=== PATIENT | female | born 1975 | race Caucasian/White ===

== ENCOUNTER 2017-11-22 18:37 | Emergency (ER) | payer MEDICAID, SELFPAY ==
[2017-11-22 18:41] VITALS: BP 138/93; PULSE 110; RESP 20; TEMP 36.9; O2SAT 98; BMI 19.7
--- NOTE | 2017-11-22 19:21 | HMH.EDUROGF ---
ED Disposition Condition on Discharge: Fair - Critical Care Critical Care Time: No <Heidy Batres - Last Filed: 11/22/17 20:05> <Haile Degroot - Last Filed: 11/22/17 21:33> Clinical Impression: Pyelonephritis, IDDM (insulin dependent diabetes mellitus) Disposition: Home, Self-Care Instructions: DI for Urinary Tract Infection (UTI) Additional Instructions: fluids and call pcp for follow up Prescriptions: cephALEXin [Keflex 500mg Cap] 500 mg PO Q8H #30 cap Referrals: Haile Degroot MD [Primary Care Provider] - Attestation: On 11/22/17, the high probability of a clinically significant, sudden or life threatening deterioration of the following system(s) required my full and direct attention, intervention and personal management. The time I documented below is in addition to time spent performing reported procedures but includes the following listed in this critical care notation. Medical Decision Making - Lab Data Result diagrams: 11/22/17 19:00 11/22/17 19:00 - [place] Inquiry Pt receiving controlled substance: No Chen[place] was queried for this patient: No <YefrixiangElazeinab - Last Filed: 11/22/17 20:05> - Lab Data Lab results reviewed: Yes: I reviewed the patient's lab results. Result diagrams: 11/22/17 19:00 11/22/17 19:00 - CT Data CT Scan: Abdomen, Pelvis Time Received: 21:[address] Reviewed: Yes: I have viewed the radiologist's interpretation Preliminary Findings: Normal/NAD <Haile Degroot - Last Filed: 11/22/17 21:33> Vital Signs: 11/22/17 18:41 11/22/17 20:37 Temperature 98.4 F Temperature Source Oral Pulse Rate [Left Brachial] 110 H 93 H Respiratory Rate 20 18 Blood Pressure [Left Arm] 138/93 128/78 Blood Pressure Mean [Left Arm] 108 94 Blood Pressure Source [Left Arm] Automatic Cuff Automatic Cuff Blood Pressure Position [Left Arm] Supine Sitting 02 Sat by Pulse Oximetry 98 98 Oxygen Delivery Method Room Air Room Air - Lab Data Lab Results 11/22/17 19:00: Urine Color Yellow, Urine Appearance Sl cloudy, Urine pH 6.0, Ur Specific [place] 1.015, Urine Protein 2+, Urine Glucose (UA) 3+, Urine Ketones Negative, Urine Blood 3+, Urine Nitrate Negative, Urine Bilirubin Negative, Urine Urobilinogen 0.2, Ur Leukocyte Esterase 1+ A, Urine RBC 20-50, Urine WBC Tntc 11/22/17 19:00: WBC 11.4 H, RBC 4.79, Hgb 14.5, Hct 44.6, MCV 93.0, MCH 30.3, MCHC 32.6, RDW 12.6, Plt Count 209, MPV 10.6 H, Neut % (Auto) 67.3, Lymph % (Auto) 24.3, [place] % (Auto) 5.3, Eos % (Auto) 2.3, Baso % (Auto) 0.7, Neut # (Auto) 7.7, Lymph # (Auto) 2.8, [place] # (Auto) 0.6, Eos # (Auto) 0.3, Baso # (Auto) 0.1 11/22/17 19:00: Sodium 137, Potassium 4.1, Chloride 99, Carbon Dioxide 31, Anion Gap 11.1, BUN 12, Creatinine 0.93, Estimated Creat Clear 69, Estimated GFR 66, Est GFR ( Amer) 80, Glucose 389 H, Calcium 9.1, Total Bilirubin 0.2, AST 14 L, ALT 27, Alkaline Phosphatase 80, Total Protein 7.6, Albumin 3.8, Globulin 3.8 H, Albumin/Globulin Ratio 1.0 L 11/22/17 19:00: Lactic Acid 1.5 Orders (Tests/Meds): ED MEDICATIONS Generic Name Dose Route Start Last Admin Trade Name Freq PRN Reason Stop Dose Admin Acetaminophen/Codeine Phosphate 1 nate 11/22/17 21:30 Acetaminophen W/Codeine #3 Take Home Pack (6) PO 11/22/17 21:31 ONCE ONE Butorphanol Tartrate 1 mg 11/22/17 21:29 Stadol 2mg/Ml Vial IV 11/22/17 21:30 ONCE ONE Discontinued Medications Generic Name Dose Route Start Last Admin Trade Name Freq PRN Reason Stop Dose Admin Sodium Chloride 1,000 mls @ 999 mls/hr 11/22/17 19:00 11/22/17 19:20 Sod Chloride 0.9% 1000ml Bag IV 11/22/17 20:00 999 mls/hr .Q1H1M AFIA Administration Ceftriaxone Sodium 1 gm/ 50 mls @ 100 mls/hr 11/22/17 18:59 11/22/17 19:20 Sodium Chloride IV 11/22/17 19:28 100 mls/hr ONCE ONE Administration Insulin Human Regular 8 unit 11/22/17 19:50 11/22/17 20:28 Humulin R Insulin 100 Units/Ml 10ml Vial SQ 11/22/17 19:51 8 un
[2017-11-22 19:24] LABS: Microscopic, Urine URINE MICROSCOPIC (MICROSCOPIC)
--- NOTE | 2017-11-22 19:25 | ED_ITS ---
ED Disposition Condition on Discharge: Fair - Critical Care Critical Care Time: No <Heidy Batres - Last Filed: 11/22/17 20:05> <Haile Degroot - Last Filed: 11/22/17 21:33> Clinical Impression: Pyelonephritis, IDDM (insulin dependent diabetes mellitus) Disposition: Home, Self-Care Instructions: DI for Urinary Tract Infection (UTI) Additional Instructions: fluids and call pcp for follow up Prescriptions: cephALEXin [Keflex 500mg Cap] 500 mg PO Q8H #30 cap Referrals: Haile Degroot MD [Primary Care Provider] - Attestation: On 11/22/17, the high probability of a clinically significant, sudden or life threatening deterioration of the following system(s) required my full and direct attention, intervention and personal management. The time I documented below is in addition to time spent performing reported procedures but includes the following listed in this critical care notation. Medical Decision Making - Lab Data Result diagrams: 11/22/17 19:00 11/22/17 19:00 - hCencho Inquiry Pt receiving controlled substance: No Chenh[place] was queried for this patient: No <YefrixiangElazeinab - Last Filed: 11/22/17 20:05> - Lab Data Lab results reviewed: Yes: I reviewed the patient's lab results. Result diagrams: 11/22/17 19:00 11/22/17 19:00 - CT Data CT Scan: Abdomen, Pelvis Time Received: 21:[address] Reviewed: Yes: I have viewed the radiologist's interpretation Preliminary Findings: Normal/NAD <Haile Degroot - Last Filed: 11/22/17 21:33> Vital Signs: 11/22/17 18:41 11/22/17 20:37 Temperature 98.4 F Temperature Source Oral Pulse Rate [Left Brachial] 110 H 93 H Respiratory Rate 20 18 Blood Pressure [Left Arm] 138/93 128/78 Blood Pressure Mean [Left Arm] 108 94 Blood Pressure Source [Left Arm] Automatic Cuff Automatic Cuff Blood Pressure Position [Left Arm] Supine Sitting 02 Sat by Pulse Oximetry 98 98 Oxygen Delivery Method Room Air Room Air - Lab Data Lab Results 11/22/17 19:00: Urine Color Yellow, Urine Appearance Sl cloudy, Urine pH 6.0, Ur Specific [place] 1.015, Urine Protein 2+, Urine Glucose (UA) 3+, Urine Ketones Negative, Urine Blood 3+, Urine Nitrate Negative, Urine Bilirubin Negative, Urine Urobilinogen 0.2, Ur Leukocyte Esterase 1+ A, Urine RBC 20-50, Urine WBC Tntc 11/22/17 19:00: WBC 11.4 H, RBC 4.79, Hgb 14.5, Hct 44.6, MCV 93.0, MCH 30.3, MCHC 32.6, RDW 12.6, Plt Count 209, MPV 10.6 H, Neut % (Auto) 67.3, Lymph % ( Auto) 24.3, [place] % (Auto) 5.3, Eos % (Auto) 2.3, Baso % (Auto) 0.7, Neut # (Auto ) 7.7, Lymph # (Auto) 2.8, [place] # (Auto) 0.6, Eos # (Auto) 0.3, Baso # (Auto) 0.1 11/22/17 19:00: Sodium 137, Potassium 4.1, Chloride 99, Carbon Dioxide 31, Anion Gap 11.1, BUN 12, Creatinine 0.93, Estimated Creat Clear 69, Estimated GFR 66, Est GFR ( Amer) 80, Glucose 389 H, Calcium 9.1, Total Bilirubin 0.2, AST 14 L, ALT 27, Alkaline Phosphatase 80, Total Protein 7.6, Albumin 3.8, Globulin 3.8 H, Albumin/Globulin Ratio 1.0 L 11/22/17 19:00: Lactic Acid 1.5 Orders (Tests/Meds): ED MEDICATIONS Generic Name Dose Route Start Last Admin Trade Name Freq PRN Reason Stop Dose Admin Acetaminophen/Codeine Phosphate 1 nate 11/22/17 21:30 Acetaminophen W/Codeine #3 Take Home Pack (6) PO 11/22/17 21:31 ONCE ONE Butorphanol Tartrate 1 mg 11/22/17 21:29 Stadol 2mg/Ml Vial IV 11/22/17 21:30 ONCE ONE
[2017-11-22 19:26] LABS: Appearance,Urine SL CLOUDY (Clear); Bilirubin,Urine Negative (Negative); Blood, Urine 3+ (Negative); Color,Urine YELLOW (Yellow); Glucose,Urine (UA) 3+ (Negative); Ketones,Urine Negative (Negative); Leukocyte Esterase,Urine 1+ (Negative); Nitrate,Urine Negative (Negative); Protein,Urine 2+ (Negative); Specific Gravity, Urine 1.015 (1.005-1.030); Urobilinogen,Urine 0.2 EU/dl (0.2)
[2017-11-22 19:28] LABS: RBC,Urine 20-50 #/hpf (0-3); WBC,Urine TNTC #/hpf (0-3)
[2017-11-22 19:32] LABS: Basophils # 0.1 K/mm3 (0-0.2); Basophils % 0.7 % (0.1-2.0); Eosinophils # 0.3 K/mm3 (0.0-0.4); Eosinophils % 2.3 % (0.1-12.0); Hematocrit 44.6 % (37.0-47.0); Hemoglobin 14.5 g/dL (12.2-16.2); Lymphocytes # 2.8 K/mm3 (0.7-4.5); Lymphocytes % 24.3 K/mm3 (10-50); Mean Corpuscular HGB Conc 32.6 g/dL (31.8-35.4); Mean Corpuscular Hemoglobin 30.3 pg (27.0-31.2); Mean Platelet Volume 10.6 fl (7.4-10.4); Monocytes # 0.6 K/mm3 (0.1-1.0); Monocytes % 5.3 % (1.7-9.3); Neutrophils # 7.7 K/mm3 (1.8-7.8); Neutrophils % 67.3 % (37.0-80.0); Platelet Count 209 K/mm3 (142-424); Red Blood Count 4.79 M/mm3 (4.20-5.40); Red Cell Distribution Width 12.6 % (11.5-17.5); White Blood Count 11.4 K/mm3 (4.8-10.8)
[2017-11-22 19:44] LABS: Alanine Aminotransferase 27 U/L (12-78); Albumin Level 3.8 gm/dL (3.4-5.0); Alkaline Phosphatase 80 U/L (46-116); Anion Gap 11.1 mEq/L (5-15); Aspartate Amino Transferase 14 U/L (15-37); Bilirubin,Total 0.2 mg/dL (0.2-1.0); Blood Urea Nitrogen 12 mg/dL (7-18); Calcium 9.1 mg/dL (8.5-10.1); Carbon Dioxide 31 mmol/L (21.0-32.0); Chloride 99 mmol/L (98-107); Creatinine Clearance Estimated 69 mL/min (0-300); Creatinine,Serum 0.93 mg/dL (0.55-1.02); Estimated Glomerular Filt Rate 66 ml/min (>60); GFR (African American) 80 ML/MIN (>60); Globulin 3.8 gm/dl (1.3-3.2); Glucose 389 mg/dL (74-106); Potassium 4.1 mmoL/L (3.5-5.1); Sodium 137 mmol/L (136-145); Total Protein,Serum 7.6 gm/dL (6.4-8.2)
[2017-11-22 19:47] LABS: Lactic Acid 1.5 mmol/L (0.4-2.0)
--- NOTE | 2017-11-22 19:50 | PC.NURSE ---
Pt. to CT
--- NOTE | 2017-11-22 20:02 | CT_ITS ---
CT abdomen pelvis w con CLINICAL INDICATION: Hematuria, pelvic pain with constipation ORDERING PHYSICIAN: Heidy Batres MD PATIENT AGE: 42 years COMPARISON: 08/26/2017 TECHNIQUE: Axial images obtained with sagittal and coronal reformats. PROCEDURE: Oral Contrast: None IV Contrast: 75 mL [id number] . FINDINGS: Minimal atelectatic or fibrotic change in the left lower lobe. The liver, spleen, adrenal glands, pancreas, and gallbladder have an unremarkable appearance. No renal calculi or hydronephrosis. No ureteral calculi. No evidence of appendicitis, diverticulitis, intestinal obstruction, or free air. There is a moderate amount retained colonic feces. There is a small amount fluid in the pelvis nonspecific and may be physiologic. No focal inflammatory change or pelvic mass evident. No acute bony anomalies. IMPRESSION: 1. No acute intra-abdominal or pelvic findings. 2. Constipation
[2017-11-22 20:37] VITALS: BP 128/78; PULSE 93; RESP 18; O2SAT 98
== END 2017-11-22 21:55 | disposition home or self-care (01) ==
PROVIDERS: Emergency Provider Emergency Medicine; Family Provider Physician Assistant; PCP Emergency Medicine
DX: N12 Tubulo-interstitial nephritis, not specified as acute or chronic (principal); E11.9 Type 2 diabetes mellitus without complications; Z79.4 Long term (current) use of insulin; Z79.899 Other long term (current) drug therapy; F17.210 Nicotine dependence, cigarettes, uncomplicated
CPT/HCPCS: 74177; 80053; 81001; 82565; 83605; 85025; 87040; 87086; 87088; 87186; 96365; 96372; 96375; 99284; Q9967

== ENCOUNTER 2017-12-08 16:31 | Emergency (ER) | payer MEDICAID, SELFPAY ==
--- NOTE | 2017-12-08 | CT_ITS ---
CT abdomen pelvis wo con CLINICAL INDICATION: Left flank pain, left lower quadrant pain ITS.REASON: LEFT FLANK PAIN ORDERING PHYSICIAN: Sam Tony MD PATIENT AGE: 42 years COMPARISON: 11/22/2017 TECHNIQUE: Axial images obtained with sagittal and coronal reformats. PROCEDURE: Oral Contrast: None IV Contrast: None . FINDINGS: Lung bases are clear. There is along left lateral hepatic segment as a normal variant. No radio opaque gallstones. Study is limited technically without IV and oral contrast and due to patient's pars of the peritoneal fat. No obvious pancreatic mass. Adrenal glands and kidneys have an unremarkable unenhanced CT appearance. There is moderate amount retained colonic feces. There is a small amount fluid in the pelvis. No signs of appendicitis or diverticulitis. No obvious pelvic mass or focal inflammatory change. No acute bony anomalies. IMPRESSION: 1. No acute abdominal or pelvic findings. There is a small amount fluid in the pelvis which is nonspecific 2. There are multiple unopacified bowel loops present within the abdomen/pelvis which could obscure or mimic pathology. If symptoms persists, consider repeating exam with IV and oral contrast administration
--- NOTE | 2017-12-08 16:54 | XR_ITS ---
XR chest portable HISTORY: Fever with pain ITS.REASON: ORDERING PHYSICIAN: Sam Tony MD PATIENT AGE: 42 years COMPARISON: 05/20/2016 FINDINGS: The cardiomediastinal silhouette and pulmonary vascularity are within normal limits. There is an oval opacity in the right midlung laterally unchanged measuring 2.5 cm. Lungs are otherwise clear. No acute bony anomalies. IMPRESSION: No acute finding
--- NOTE | 2017-12-08 17:12 | HMH.EDGENADL ---
ED Disposition Clinical Impression: Pyelonephritis Disposition: Home, Self-Care Condition on Discharge: Good Instructions: Urinary Tract Infection Prescriptions: Ibuprofen [Motrin 600mg Tablet] 600 mg PO Q6HP PRN #14 tab PRN Reason: Moderate Pain Ciprofloxacin HCl [Cipro 500mg Tab] 500 mg PO BID #20 tab Promethazine HCl [Phenergan 25mg tab] 25 mg PO BIDP PRN #10 tab PRN Reason: Nausea And Vomiting Referrals: Haile Degroot MD [Primary Care Provider] - - Critical Care Critical Care Time: No Attestation: On 12/08/17, the high probability of a clinically significant, sudden or life threatening deterioration of the following system(s) required my full and direct attention, intervention and personal management. The time I documented below is in addition to time spent performing reported procedures but includes the following listed in this critical care notation. Medical Decision Making - Medical Records MR Comment: 193 CT read by radiologist as no acute disease. Checked the previous culture was susceptible to basically everything including Cipro will start the patient on Cipro here. Vital Signs: 12/08/17 17:16 Temperature 100.1 F H Temperature Source Oral Pulse Rate [Right Radial] 119 H Respiratory Rate 20 Blood Pressure [Right Arm] 107/75 Blood Pressure Mean [Right Arm] 85 Blood Pressure Source [Right Arm] Automatic Cuff Blood Pressure Position [Right Arm] Sitting 02 Sat by Pulse Oximetry 100 Oxygen Delivery Method Room Air - Lab Data Lab Results 12/08/17 16:54: VBG pH 7.31, VBG pCO2 58.1 H, VBG pO2 29.3, VBG HCO3 28.7, VBG Total CO2 30.4 H, VBG O2 Saturation 56.4, VBG Base Excess 2.4 H 12/08/17 16:54: Urine HCG, Qual Negative, Influenza Type A Ag Negative, Influenza Type B Ag Negative 12/08/17 17:22: Urine Color Yellow, Urine Appearance Clear, Urine pH 6.0, Ur Specific [place] <= 1.005, Urine Protein Negative, Urine Glucose (UA) 3+, Urine Ketones Negative, Urine Blood 1+, Urine Nitrate Positive, Urine Bilirubin Negative, Urine Urobilinogen 0.2, Ur Leukocyte Esterase Trace, Urine RBC Occasional, Urine WBC 50-100, Ur Squamous Epith Cells 3-5, Urine Bacteria 2+ 12/08/17 17:47: WBC 9.8, RBC 4.62, Hgb 14.0, Hct 42.4, MCV 91.7, MCH 30.4, MCHC 33.1, RDW 12.4, Plt Count 204, MPV 10.0, Neut % (Auto) 86.0 H, Lymph % (Auto) 9.2 L, [place] % (Auto) 3.9, Eos % (Auto) 0.6, Baso % (Auto) 0.3, Neut # (Auto) 8.5 H, Lymph # (Auto) 0.9, [place] # (Auto) 0.4, Eos # (Auto) 0.1, Baso # (Auto) 0.0, Total Counted 100, Neutrophils % (Manual) 90 H, Lymphocytes % (Manual) 7 L, Monocytes % (Manual) 3, Platelet Estimate Normal, RBC Morphology Normal 12/08/17 17:47: Sodium 131 L, Potassium 4.2, Chloride 92 L, Carbon Dioxide 32, Anion Gap 11.2, BUN 15, Creatinine 1.23 H, Estimated Creat Clear 53, Estimated GFR 48 L, Est GFR ( Amer) 58 L, Glucose 357 H, Calcium 9.5, Total Bilirubin 0.6, AST 8 L, ALT 22, Alkaline Phosphatase 104, Lactate Dehydrogenase 156, Total Protein 7.9, Albumin 3.7, Globulin 4.2 H, Albumin/Globulin Ratio 0.9 L, Lipase 52 L 12/08/17 17:47: Acetone Level None detected 12/08/17 18:12: POC Glucose 316 Result diagrams: 12/08/17 17:47 12/08/17 17:47 Orders (Tests/Meds): ED MEDICATIONS Generic Name Dose Route Start Last Admin Trade Name Freq PRN Reason Stop Dose Admin Levofloxacin/Dextrose 500 mg in 100 mls @ 100 mls/hr 12/08/17 19:26 Levaquin 500mg/100ml Premix IV 12/08/17 20:25 PREOP ONE Protocol Discontinued Medications Generic Name Dose Route Start Last Admin Trade Name Freq PRN Reason Stop Dose Admin Sodium Chloride 1,000 mls @ 999 mls/hr 12/08/17 17:00 12/08/17 18:00 Sod Chlor 0.9% 1000ml Bag IV 02/12/18 18:00 999 mls/hr .Q1H1M AFIA Administration Morphine Sulfate 4 mg 12/08/17 16:54 12/08/17 18:01 Morphine 4mg/Ml Syringe IV 12/08/17 16:55 4 mg ONCE ONE Administration Ondansetron HCl 4 mg 12/08/17 16:54 12/08/17 18:00 Zofran 4mg/2ml Vial IV
[2017-12-08 17:16] VITALS: BP 107/75; PULSE 119; RESP 20; TEMP 37.8; O2SAT 100; BMI 20.1
--- NOTE | 2017-12-08 17:16 | ED_ITS ---
ED Disposition Clinical Impression: Pyelonephritis Disposition: Home, Self-Care Condition on Discharge: Good Instructions: Urinary Tract Infection Prescriptions: Ibuprofen [Motrin 600mg Tablet] 600 mg PO Q6HP PRN #14 tab PRN Reason: Moderate Pain Ciprofloxacin HCl [Cipro 500mg Tab] 500 mg PO BID #20 tab Promethazine HCl [Phenergan 25mg tab] 25 mg PO BIDP PRN #10 tab PRN Reason: Nausea And Vomiting Referrals: Haile Degroot MD [Primary Care Provider] - - Critical Care Critical Care Time: No Attestation: On 12/08/17, the high probability of a clinically significant, sudden or life threatening deterioration of the following system(s) required my full and direct attention, intervention and personal management. The time I documented below is in addition to time spent performing reported procedures but includes the following listed in this critical care notation. Medical Decision Making - Medical Records MR Comment: 193 CT read by radiologist as no acute disease. Checked the previous culture was susceptible to basically everything including Cipro will start the patient on Cipro here. Vital Signs: 12/08/17 17:16 Temperature 100.1 F H Temperature Source Oral Pulse Rate [Right Radial] 119 H Respiratory Rate 20 Blood Pressure [Right Arm] 107/75 Blood Pressure Mean [Right Arm] 85 Blood Pressure Source [Right Arm] Automatic Cuff Blood Pressure Position [Right Arm] Sitting 02 Sat by Pulse Oximetry 100 Oxygen Delivery Method Room Air - Lab Data Lab Results 12/08/17 16:54: VBG pH 7.31, VBG pCO2 58.1 H, VBG pO2 29.3, VBG HCO3 28.7, VBG Total CO2 30.4 H, VBG O2 Saturation 56.4, VBG Base Excess 2.4 H 12/08/17 16:54: Urine HCG, Qual Negative, Influenza Type A Ag Negative, Influenza Type B Ag Negative 12/08/17 17:22: Urine Color Yellow, Urine Appearance Clear, Urine pH 6.0, Ur Specific [place] <= 1.005, Urine Protein Negative, Urine Glucose (UA) 3+, Urine Ketones Negative, Urine Blood 1+, Urine Nitrate Positive, Urine Bilirubin Negative, Urine Urobilinogen 0.2, Ur Leukocyte Esterase Trace, Urine RBC Occasional, Urine WBC 50-100, Ur Squamous Epith Cells 3-5, Urine Bacteria 2+ 12/08/17 17:47: WBC 9.8, RBC 4.62, Hgb 14.0, Hct 42.4, MCV 91.7, MCH 30.4, MCHC 33.1, RDW 12.4, Plt Count 204, MPV 10.0, Neut % (Auto) 86.0 H, Lymph % (Auto) 9.2 L, [place] % (Auto) 3.9, Eos % (Auto) 0.6, Baso % (Auto) 0.3, Neut # (Auto) 8.5 H, Lymph # (Auto) 0.9, [place] # (Auto) 0.4, Eos # (Auto) 0.1, Baso # (Auto) 0.0, Total Counted 100, Neutrophils % (Manual) 90 H, Lymphocytes % (Manual) 7 L , Monocytes % (Manual) 3, Platelet Estimate Normal, RBC Morphology Normal 12/08/17 17:47: Sodium 131 L, Potassium 4.2, Chloride 92 L, Carbon Dioxide 32, Anion Gap 11.2, BUN 15, Creatinine 1.23 H, Estimated Creat Clear 53, Estimated GFR 48 L, Est GFR ( Amer) 58 L, Glucose 357 H, Calcium 9.5, Total Bilirubin 0.6, AST 8 L, ALT 22, Alkaline Phosphatase 104, Lactate Dehydrogenase 156, Total Protein 7.9, Albumin 3.7, Globulin 4.2 H, Albumin/Globulin Ratio 0.9 L, Lipase 52 L 12/08/17 17:47: Acetone Level None detected 12/08/17 18:12: POC Glucose 316 Result diagrams: 12/08/17 17:47 12/08/17 17:47 Orders (Tests/Meds): ED MEDICATIONS Generic Name Dose Route Start Last Admin Trade Name Freq PRN Reason Stop Dose Admin Levofloxacin/Dextrose 500 mg in 100 mls @ 100 mls/hr 12/08/17 19:26 Levaquin 500mg/100ml Premix IV 12/08/17 20:25 PREOP ONE Protocol
[2017-12-08 17:34] LABS: Microscopic, Urine URINE MICROSCOPIC (MICROSCOPIC)
[2017-12-08 17:37] LABS: Appearance,Urine CLEAR (Clear); Bilirubin,Urine Negative (Negative); Blood, Urine 1+ (Negative); Color,Urine YELLOW (Yellow); Glucose,Urine (UA) 3+ (Negative); Ketones,Urine Negative (Negative); Leukocyte Esterase,Urine TRACE (Negative); Nitrate,Urine POSITIVE (Negative); Protein,Urine Negative (Negative); Specific Gravity, Urine <= 1.005 (1.005-1.030); Urobilinogen,Urine 0.2 EU/dl (0.2)
[2017-12-08 17:47] LABS: Urine Pregnancy, HCG Qual. Negative (Negative)
[2017-12-08 18:00] LABS: Basophils % 0.3 % (0.1-2.0); Eosinophils # 0.1 K/mm3 (0.0-0.4); Eosinophils % 0.6 % (0.1-12.0); Hematocrit 42.4 % (37.0-47.0); Lymphocytes # 0.9 K/mm3 (0.7-4.5); Lymphocytes % 9.2 K/mm3 (10-50); Mean Corpuscular HGB Conc 33.1 g/dL (31.8-35.4); Mean Corpuscular Hemoglobin 30.4 pg (27.0-31.2); Mean Corpuscular Volume 91.7 fl (81-99); Monocytes # 0.4 K/mm3 (0.1-1.0); Monocytes % 3.9 % (1.7-9.3); Neutrophils # 8.5 K/mm3 (1.8-7.8); Platelet Count 204 K/mm3 (142-424); Red Blood Count 4.62 M/mm3 (4.20-5.40); Red Cell Distribution Width 12.4 % (11.5-17.5); White Blood Count 9.8 K/mm3 (4.8-10.8)
[2017-12-08 18:03] LABS: MANUAL DIFFERENTIAL MANUAL DIFFERENTIAL (MANUAL DIFF)
[2017-12-08 18:08] LABS: Alanine Aminotransferase 22 U/L (12-78); Albumin Level 3.7 gm/dL (3.4-5.0); Albumin/Globulin Ratio 0.9 (1.1-1.8); Alkaline Phosphatase 104 U/L (46-116); Anion Gap 11.2 mEq/L (5-15); Aspartate Amino Transferase 8 U/L (15-37); Bilirubin,Total 0.6 mg/dL (0.2-1.0); Blood Urea Nitrogen 15 mg/dL (7-18); Calcium 9.5 mg/dL (8.5-10.1); Carbon Dioxide 32 mmol/L (21.0-32.0); Chloride 92 mmol/L (98-107); Creatinine Clearance Estimated 53 mL/min (0-300); Creatinine,Serum 1.23 mg/dL (0.55-1.02); Estimated Glomerular Filt Rate 48 ml/min (>60); GFR (African American) 58 ML/MIN (>60); Globulin 4.2 gm/dl (1.3-3.2); Glucose 357 mg/dL (74-106); Lactate Dehydrogenase 156 U/L (82-234); Lipase 52 u/L (73-393); Potassium 4.2 mmoL/L (3.5-5.1); Sodium 131 mmol/L (136-145); Total Protein,Serum 7.9 gm/dL (6.4-8.2)
--- NOTE | 2017-12-08 18:13 | PC.NURSE ---
FSBS 316
[2017-12-08 18:19] LABS: POC Glucose,Bedside 316 mg/dL
[2017-12-08 18:30] LABS: Bacteria,Urine 2+ /lpf; RBC,Urine Occasional #/hpf (0-3); WBC,Urine 50-100 #/hpf (0-3)
[2017-12-08 18:47] LABS: Acetone, Serum (Rapid) None Detected (None Detect)
[2017-12-08 19:03] LABS: VBG Base Excess 2.4 mmol/L (-2.4-2.3); VBG HCO3 28.7 mmol/L (23-30); VBG Oxygen Saturation 56.4 % (50-70); VBG PH 7.31 mmol/L (7.31-7.41); VBG PO2 29.3 mmol/L (28-40); VBG Total CO2 30.4 mmol/L (23-27)
[2017-12-08 19:06] LABS: Lymphocytes % 7 % (10-50); Monocytes % 3 % (2-9); Neutrophils % 90 % (42-76); Platelet Estimate Normal; Total Cells Counted 100
[2017-12-08 19:07] LABS: RBC Morphology Normal
[2017-12-08 19:08] LABS: VBG PCO2 58.1 mmol/L (35-51)
[2017-12-08 19:33] VITALS: BP 118/65; PULSE 115; O2SAT 98
[2017-12-08 20:06] LABS: POC Glucose,Bedside 265 mg/dL
[2017-12-08 20:41] VITALS: BP 115/59; PULSE 110; RESP 20; TEMP 37.7; O2SAT 96
== END 2017-12-08 20:43 | disposition home or self-care (01) ==
PROVIDERS: Emergency Provider Emergency Medicine; Family Provider Physician Assistant; PCP Emergency Medicine
DX: N10 Acute pyelonephritis (principal); E11.65 Type 2 diabetes mellitus with hyperglycemia; Z79.4 Long term (current) use of insulin; Z79.899 Other long term (current) drug therapy; F17.210 Nicotine dependence, cigarettes, uncomplicated
CPT/HCPCS: 71045; 74176; 80053; 81001; 81025; 82009; 82803; 82962; 83615; 83690; 85007; 85025; 87086; 87088; 87186; 87275; 87276; 96365; 96366; 96367; 96374; 96375; 99283; J1956; J2405

== ENCOUNTER → 2018-01-21 16:06 | Outpatient (CLI) | payer MEDICAID, SELFPAY ==
[2018-01-21 20:00] LABS: Amphetamine/Metha Screen,Urine Negative ng/mL (<1000); Barbiturates Screen,Urine Negative ng/mL (<200); Benzodiazepines Screen,Urine Negative ng/mL (200); Cannabinoid Screen,Urine Negative ng/mL (<50); Cocaine Screen,Urine Negative ng/g (<300); Methadone Screen,Urine Negative ng/mL (<300); Opiate Screen,Urine Negative ng/mL (<300); Phencyclidine Screen,Urine Negative ng/mL (<25)
[2018-01-23 08:26] LABS: Creatinine, Urine 31.1 mg/dL (Not Estab.); Microalbumin, Urine <3.0 ug/mL (Not Estab.)
== END ==
PROVIDERS: Visit Provider Nurse Practitioner Family
DX: Z79.899 Other long term (current) drug therapy (principal); E11.9 Type 2 diabetes mellitus without complications
CPT/HCPCS: 80305; 82043; 82570